=== PATIENT | male | born 1965 | race Caucasian/White ===

== ENCOUNTER 2024-09-14 13:36 | Emergency (ER) | payer SELFPAY ==
[2024-09-14 13:40] VITALS: BP 133/86
[2024-09-14 13:59] VITALS: BMI 28.3
--- NOTE | 2024-09-14 14:11 | ED.GENMED ---
History of Present Illness
General
Chief Complaint: Musculo-Skeletal Complaint
Source: patient
Time Seen by Provider: 09/14/24 13:57
History of Present Illness
History of Present Illness:
58-year-old male with past medical history of hypertension and anxiety presenting to the emergency department for evaluation of left-sided lower back pain that has been ongoing for the last 1 to 2 months, waxes and wanes in nature but notes that
when he does get the pain it is often severe, sharp and shooting down the leg accompanied with some paresthesia, seemingly worse with certain movements, no relief after following with a chiropractor. Patient had x-ray imaging done which showed some
mild arthritic changes but otherwise no abnormalities. He currently is traveling back and forth between this area in [place] where he lives, has an orthopedic appointment scheduled back home in [place]. Patient states pain is not really any
worse today just is not going away. No fevers, chills, rigors, neurogenic claudication, abnormal weight loss, history of IV drug abuse, traumatic injuries or any other red flag symptoms. Patient did not take anything for the pain yet today.
Past History
Past History
ED Past Medical History: HTN and Psychiatric
ED Past Surgical History: Orthopedic
Social History
Tobacco: Non-smoker
Alcohol: Occasional
Drug: None
Personal:
Living: with family
Employment: Employed
Review of Systems
Review of Systems
All Other Systems: ROS reviewed and negative except as documented in HPI and ROS
Phy Exam
Physical Exam
Physical Exam:
GENERAL: Alert , in no apparent distress
HEAD: NCAT
EYE: clear conjunctiva b/l
NECK: Supple
ENT: o/p clr, mmm.
BACK: Normal range of motion, no focal tenderness, no midline bony tenderness, no rashes
NEUROLOGICAL: Alert and oriented, no focal neuro deficits. Patellar deep tendon reflexes intact and equal bilaterally, sensation grossly intact and equal to light touch bilateral lower extremities
SKIN: Warm and dry, skin intact.
MUSCULOSKELETAL: No edema, well perfused. EHL intact bilaterally
PSYCH: Normal and appropriate interaction.
Scores
Heart Failure Risk
Heart Failure Risk Score: Not Applicable
Heart Score for Chest Pain Patients
STEMI patient?: Not applicable
Withdrawal Assessment of Alcohol
Withdrawal Assessment Completed?: Not applicable
Course
Orders/Labs/Results
Orders:
Orders
09/14/24 14:10
Dexamethasone Sod Phosphate [Decadron] 10 mg IM NOW STA
Ketorolac [Toradol] 30 mg IM NOW STA
Lidocaine [Lidocaine 4% Patch] 1 patch TOPICAL NOW STA
Apply Lidocaine patch(s) to:: left lower back
Vital Signs
Initial and Last Documented VS:
Initial Vital Signs
Temp Pulse Resp BP Pulse Ox
98 F 81 16 133/86 99
09/14/24 13:40 09/14/24 13:40 09/14/24 13:40 09/14/24 13:40 09/14/24 13:40
Last Documented Vital Signs
Temp Pulse Resp BP Pulse Ox
98 F 81 16 133/86 99
09/14/24 13:40 09/14/24 13:40 09/14/24 13:40 09/14/24 13:40 09/14/24 13:40
MDM/Problems Addressed
Differential Diagnosis Includes:
Disc herniation, nerve impingement, spinal stenosis, lumbar strain, no symptoms to suggest neurogenic claudication or infectious etiology
MDM/Problems Addressed:
58-year-old male presenting the ER for 1 to 2 months of low back pain, pain radiating into the left leg. Has already had x-ray imaging which showed degenerative changes, has seen chiropractor and had adjustments with no relief. Has appointment
upcoming with orthopedist but not until he returns home to [place]. Symptoms not any worse today but no improvement. Based off of exam I do suspect lumbar radiculopathy to be the most likely diagnosis. Discussed with patient that he would
likely need more advanced imaging in order to get a more accurate diagnosis but at this time does not need an emergent MRI. Will treat symptoms with continued anti-inflammatories, steroid taper, muscle relaxant and topical agents. Aware of return
precautions to the ER.
*Pulse Oximetry
Patient hypoxic: no
*Critical Care Note
Total Time (30-74mins, 75-104mins- exclusive of procedures): Not Applicable
ED Attending Note
-
Portions of this chart may have been created with voice recognition software.� Occasional wrong word or��sound alike� substitutions may have occurred due to the inherent limitations of voice recognition software.
Discharge Plan
Departure
Patient Disposition: Home (Routine Discharge)
Date of Disposition: 09/14/24
Time of Disposition: 14:11
Patient with high blood pressure during this ER visit?: No
Discharge Problem:
Acute left lumbar radiculopathy
Instructions: Radiculopathy of the neck and back (including sciatica) - Discharge instruc
Prescriptions:
New
methylprednisolone [Medrol (Ralph)] 4 mg tablets,dose pack
4 mg PO DIRECTED Qty: 21 0RF
lidocaine 5 % adhesive patch,medicated
1 patch topical DAILY PRN (Reason: pain) Qty: 30 0RF
naproxen 500 mg tablet
500 mg PO BID PRN (Reason: Pain) Qty: 10 0RF
diazepam [Valium] 5 mg tablet
5 mg PO BID PRN (Reason: muscle spasm) Qty: 8 0RF
No Action
lisinopril 20 mg Tablet
20 mg PO DAILY
meloxicam 15 mg Tablet
15 mg PO DAILY
bupropion HCl 300 mg Tablet Extended Release 24 Hr
300 mg PO DAILY
Interventions
Interventions:
*Risk Screen - Suicide Last Done: 09/14/24 13:40
*Neglect/Abuse Screening Last Done: 09/14/24 13:40
*ED- Fall Risk Assessment Last Done: 09/14/24 13:59
*ED COVID-19 Vaccine History Last Done: 09/14/24 13:59
*Nursing Disposition Last Done: 09/14/24 14:36
ED-Musculoskeletal Assessment Last Done: 09/14/24 14:01
Discharge Date and Time
Discharge Date/Time: 09/14/24 14:37
Print Language: JAPANESE
[2024-09-14] MEDS: LIDOCAINE 4% PATCH 1 PATCH TOPICAL (14:21)
[2024-09-14] MEDS: TORADOL 30 MG IM (14:21)
[2024-09-14] MEDS: DECADRON 10 MG IM (14:21)
== END 2024-09-14 14:37 | disposition home or self-care (01) ==
LOC: EMR 13:36
PROVIDERS: EMERGENCY PHYSICIAN Student in an Organized Health Care Education/Training Program
DX: M54.16 Radiculopathy, lumbar region (principal); I10 Essential (primary) hypertension
CPT/HCPCS: 96372; 99284

== ENCOUNTER 2024-09-24 15:19 | Emergency (ER) | payer OTHER, SELFPAY ==
[2024-09-24 15:31] VITALS: BP 116/80
--- NOTE | 2024-09-24 19:33 | ED.GENMED ---
History of Present Illness
General
Chief Complaint: Musculo-Skeletal Complaint
Source: patient
Time Seen by Provider: 09/24/24 19:32
History of Present Illness
History of Present Illness:
This patient is a 58-year-old male presents emergency department with complaints of left-sided lower back pain that radiates down the left buttock and lateral leg distal to the knee. This is been on and off for the last 4 to 6 weeks without
associated specific trauma or fall or injury. He denies numbness, tingling, fever, chills, bowel or bladder incontinence, perianal anesthesia, weakness. He notes the pain is worse with activity and walking. Patient states he was seen by his
primary care doctor in [place] where he lives as well as in the emergency department here. He had recent x-rays which were unremarkable. He saw a chiropractor twice. In our emergency department he was prescribed nonsteroidals, lidocaine patch,
Valium, and steroids. By his family doctor he was prescribed a muscle relaxant and meloxicam. He says that he no longer has these medications and is seeking further medication until he can be seen for an MRI within the next 2 weeks. His symptoms
are not worse, but just rather persistent.
Past History
Past History
ED Past Medical History: HTN and Psychiatric
ED Past Surgical History: Orthopedic
Social History
Tobacco: Non-smoker
Alcohol: Occasional
Drug: None
Personal:
Living: with family
Employment: Employed
Phy Exam
Physical Exam
Physical Exam:
GENERAL: Alert , in no apparent distress
EYE: pupils equal and reactive
NECK: Supple, no significant adenopathy.
ENT: o/p clr, mmm.
CARDIAC: Regular rate and rhythm .
LUNGS: Clear breath sounds bilaterally, no acute respiratory distress, no wheezes/rales/rhonchi
ABDOMEN: Soft, without focal tenderness, no r/g, no cvat
NEUROLOGICAL: Alert and oriented, no focal neuro deficits, motor 5 out of 5, sensory intact, 2+ patellar reflexes, positive SLR on the right
SKIN: Warm and dry, skin intact.
MUSCULOSKELETAL: No edema, well perfused.
PSYCH: Normal and appropriate interaction.
Course
Vital Signs
Initial and Last Documented VS:
Initial Vital Signs
Temp Pulse Resp BP Pulse Ox
98.4 F 86 18 116/80 96
09/24/24 15:31 09/24/24 15:31 09/24/24 15:31 09/24/24 15:31 09/24/24 15:31
Last Documented Vital Signs
Temp Pulse Resp BP Pulse Ox
98.4 F 86 18 116/80 96
09/24/24 15:31 09/24/24 15:31 09/24/24 15:31 09/24/24 15:31 09/24/24 15:31
Update Note
Update Note:
Patient presents to the Emergency Department with back pain
Number and Complexity of Problems Addressed at the Encounter
� Chronic conditions affecting care:
� Acute Exacerbation and/or Progression of Chronic Illness:
� Differential Diagnosis includes: But not limited to muscular strain, lumbar radiculopathy, cauda equina, etc. etc.
Amount and/or Complexity of Data to be Reviewed and Analyzed
� I performed an independent evaluation of and my interpretation is:
EKG:
CT:
Xrays:
Laboratory Studies:
Other:
� Review of other/old records reveals:
� Clinical information was obtained by an independent historian:
� Prescriptions/Medications Considered but not given:
� Further testing considered but not performed:
Risk of Complications and/or Morbidity or Mortality of Patient Management
� Social determinants of health affecting care:
� Discussion with other providers (PCP, Hospitalists, Consultants, etc):
� Escalation of care including admission/observation vs risk of discharge considered: Prior records reviewed. Patient does not exhibit any warning signs to suggest impending cauda equina. Overall well-appearing, motor strength
intact, sensory intact, no incontinence, etc. No other abnormalities noted on exam. Strongly suspect lumbar radiculopathy. Will refer to Ortho this week, short course of Neurontin. Discussed with him concerns regarding taking medications as
directed, side effects/risks of his medications, importance of close follow-up, and reasons to return to the ER.
ED Attending Note
-
Portions of this chart may have been created with voice recognition software.� Occasional wrong word or��sound alike� substitutions may have occurred due to the inherent limitations of voice recognition software.
Discharge Plan
Departure
Patient Disposition: Home (Routine Discharge)
Date of Disposition: 09/24/24
Time of Disposition: 19:49
Patient with high blood pressure during this ER visit?: No
Condition: Good
Discharge Problem:
Radiculopathy
Instructions: Radiculopathy of the neck and back (including sciatica)
Prescriptions:
New
gabapentin [Neurontin] 300 mg capsule
300 mg PO BID Qty: 20 0RF
No Action
lisinopril 20 mg Tablet
20 mg PO DAILY
meloxicam 15 mg Tablet
15 mg PO DAILY
bupropion HCl 300 mg Tablet Extended Release 24 Hr
300 mg PO DAILY
methylprednisolone [Medrol (Ralph)] 4 mg tablets,dose pack
4 mg PO DIRECTED Qty: 21 0RF
lidocaine 5 % adhesive patch,medicated
1 patch topical DAILY PRN (Reason: pain) Qty: 30 0RF
naproxen 500 mg tablet
500 mg PO BID PRN (Reason: Pain) Qty: 10 0RF
diazepam [Valium] 5 mg tablet
5 mg PO BID PRN (Reason: muscle spasm) Qty: 8 0RF
Referrals:
Wiley Gonzalez MD [Active, Orthopedics] - Next open appointment
UNKNOWN - PT DOES,NOT KNOW [Family Provider]
Activity Restrictions/Additional Instructions:
IF YOU DEVELOP INCREASING NEW OR WORSENING PAIN, FEVER, NUMBNESS, INCONTINENCE, SWELLING, ABDOMINAL PAIN, GET WORSE OR DO NOT GET BETTER, OR OTHER WORRISOME SIGNS, PLEASE RETURN TO THE ER IMMEDIATELY
Interventions
Interventions:
*Risk Screen - Suicide Last Done: 09/24/24 17:07
*General Assessment Last Done: 09/24/24 17:07
*Neglect/Abuse Screening Last Done: 09/24/24 17:07
*ED COVID-19 Vaccine History Last Done: 09/24/24 17:07
ED-Musculoskeletal Assessment Last Done: 09/24/24 17:07
Discharge Date and Time
Print Language: SWISS
[2024-09-24] MEDS: NEURONTIN 300 MG PO (19:55)
== END 2024-09-24 20:00 | disposition home or self-care (01) ==
LOC: EMR 15:19
PROVIDERS: EMERGENCY PHYSICIAN Emergency Medicine
DX: M54.16 Radiculopathy, lumbar region (principal)
CPT/HCPCS: 99283